=== PATIENT | female | born 1950 | race Caucasian/White ===

== ENCOUNTER → 2016-06-04 | Outpatient (CLI) | payer MEDICARE, BC ==
[~2016-06-04] MED LIST: AMARYL 4MG. TAB4 MG PO; COUMADIN3 MG PO; LANTUS INS100 UNITS/ SC; METFORMIN1000 MG PO; NAPROSYN 500MG500 MG PO; ONGLYZA5 MG PO; PRAVASTATIN 20M20 MG PO; RAMIPRIL2.5 MG PO
[2016-06-04 10:53] LABS: HEMOGLOBIN 14.5 g/dL (12.2-16.2)
[2016-06-04 11:58] LABS: BUN 17 mg/dL (7-18); GFR (ESTIMATED) 62 ML/MIN (59-)
[2016-06-05 10:40] LABS: Creatinine, Urine 22.8 mg/dL (Not Estab.); Microalbumin, Urine 7.5 ug/mL (Not Estab.)
== END ==
LOC: LAB 10:00
PROVIDERS: Internal Medicine
DX: E11.42 Type 2 diabetes mellitus with diabetic polyneuropathy (principal); E78.5 Hyperlipidemia, unspecified; I10 Essential (primary) hypertension; I48.0 Paroxysmal atrial fibrillation; M15.0 Primary generalized (osteo)arthritis

== ENCOUNTER → 2016-11-08 | Outpatient (CLI) | payer MEDICARE, BC | LOC: LAB 09:34 | DX: I48.0 Paroxysmal atrial fibrillation (principal); Z79.01 Long term (current) use of anticoagulants; Z51.81 Encounter for therapeutic drug level monitoring ==

== ENCOUNTER → 2017-01-01 | Outpatient (CLI) | payer MEDICARE, BC | LOC: LAB 16:15 | DX: I48.0 Paroxysmal atrial fibrillation (principal); Z79.01 Long term (current) use of anticoagulants; Z51.81 Encounter for therapeutic drug level monitoring ==

== ENCOUNTER → 2017-01-20 | Outpatient (CLI) | payer MEDICARE, BC | LOC: LAB 12:29 | DX: I48.0 Paroxysmal atrial fibrillation (principal); Z79.01 Long term (current) use of anticoagulants; Z51.81 Encounter for therapeutic drug level monitoring ==

== ENCOUNTER → 2017-02-12 | Outpatient (CLI) | payer MEDICARE, BC ==
[~2017-02-12] MED LIST changes: +JARDIANCE25 MG; +LOVASTATIN10 MG; +METOPROLOL25 MG; +SPIRONOLACTONE25 M1
== END ==
LOC: LAB 11:14
DX: I48.0 Paroxysmal atrial fibrillation (principal); Z79.01 Long term (current) use of anticoagulants; Z51.81 Encounter for therapeutic drug level monitoring

== ENCOUNTER → 2017-02-19 | Outpatient (CLI) | payer MEDICARE, BC ==
--- NOTE | 2017-02-19 16:57 | RADIOLOGY REPORT PS360 ---
ARTERIAL/[id number] SKIN CHANGES, cold feet with discoloration, diabetes, ORDERING PHYSICIAN: YOGESH GORDON DPM PATIENT AGE: 66 years TECHNIQUE: Segmental pressures obtained of both right and left leg. These are compared to brachial blood pressure to yield index at each level sampled including summary LEONOR. The data sheets from the procedure are available in PACS FINDINGS Rest study only performed today No prior studies available for comparison. Blood pressures reported are in millimeters mercury. RIGHT LEG LEONOR = 1 Toe brachial index is 0.8. Brachial BP: 144 Thigh BP: 179 Calf BP: 177 Ankle PT: 151 Ankle DP : 119 Digit =113 LEFT LEG LEONOR = 1.0. Left toe brachial index is 0.8 Brachial BPD: 138 Thigh BP: 185 Calf BP: 181 Ankle PT:149 Ankle DP: 200 Digit = 116 Pulses and waveforms: Normal IMPRESSION: The ABIs and TBI as reported above are within normal limits. Waveforms and pulses are also unremarkable.
== END ==
LOC: RT 14:19
DX: E11.628 Type 2 diabetes mellitus with other skin complications (principal); R20.9 Unspecified disturbances of skin sensation; R09.89 Other specified symptoms and signs involving the circulatory and respiratory systems

== ENCOUNTER → 2017-03-07 | Outpatient (CLI) | payer MEDICARE, BC ==
[2017-03-07 11:57] LABS: LYMPH # 1.2 K/mm3 (0.7-4.5); LYMPH % 16.8 % (10-50.0)
[2017-03-07 11:59] LABS: HEMOGLOBIN 13.2 g/dL (12.2-16.2)
[2017-03-07 13:23] LABS: BILIRUBIN, INDIRECT 1.42 mg/dL (0-0.9); BUN 17 mg/dL (7-18)
[2017-03-07 13:24] LABS: GFR (ESTIMATED) 45 ML/MIN (59-)
== END ==
LOC: LAB 11:18
PROVIDERS: Internal Medicine
DX: E11.42 Type 2 diabetes mellitus with diabetic polyneuropathy (principal); E78.5 Hyperlipidemia, unspecified; I48.0 Paroxysmal atrial fibrillation; I50.9 Heart failure, unspecified; I10 Essential (primary) hypertension

== ENCOUNTER → 2017-03-14 | Outpatient (CLI) | payer MEDICARE, BC ==
--- NOTE | 2017-03-14 13:48 | RADIOLOGY REPORT PS360 ---
US ABD(COMPLETE-MULTI ORGANS HISTORY: RUQ PAIN, ELEAVTED LIVER ENZYMES weight loss Patient Age: 66 years: Female Ordering Physician: Caden Fair MD TECHNIQUE: Ultrasound abdomen complete COMPARISON :None FINDINGS Pancreas. Unremarkable. Fair visualization of head body and medial tail. Liver. No focal lesions of significance. No biliary ductal dilatation. Normal portable flow pattern. Benign renal cyst 2 cm diameter Gallbladder surgically absent. Common duct normal diameter postcholecystectomy measuring 6 mm at hilum of liver. Right kidney 8.9 cm in length. Left kidney 8.5 cm in length. Question some mild scarring and cortical thinning towards upper pole.. Just less than 2 cm cyst midportion left kidney. Benign appearance. Perhaps slight decreased color Doppler flow the left kidney although this could merely reflect less optimal visualization here. Aorta normal caliber measuring 1.4 cm superiorly and tapers as it continues distal. No aneurysm. Spleen normal size & length. IMPRESSION...: No significant abnormalities Gallbladder surgically removed. Common duct normal for postcholecystectomy Kidneys. No urinary tract obstruction. Left kidney: 2 cm renal cyst midportion left kidney. Question some minor scarring or cortical thinning towards upper portion left kidney.
== END ==
LOC: RAD 07:53 → LAB 07:53 → RAD 08:00
DX: R10.11 Right upper quadrant pain (principal); R94.8 Abnormal results of function studies of other organs and systems